=== PATIENT | male | born 1980 | race Caucasian/White ===

== ENCOUNTER 2022-07-23 14:05 | Emergency (ER) | payer OTHER ==
--- OUTSIDE RECORDS SUMMARY | 2022-07-23 14:08 | XMS REPORT | Continuity of Care Document ---
:1980 Author Organization [facility] t Address [address] [place] [address] [address] [place] [address] Care Team Providers Name Role Phone Romario Liu Primary Care Physician Noe_Ivanna Attending Clinician Unavailable VAHID GALLARDO Attending Clinician Unavailable Vahid Camarillo Attending Clinician Doctor Unassigned, [place] Attending Clinician Unavailable DARCY CARMONA Attending Clinician Unavailable Darcy Carmona MD Attending Clinician Noe_Ivanna Admitting Clinician Unavailable Payers Payer Name Policy Type Policy Number Effective Date Expiration Date Roberto bell BRIANNA - JOSE LUIS [id number] 2004 (POS II) 00:00:00 [place] [id number] 2017 2022 00:00:00 [place]PPO[place] 00:00:00 [place] [id number] 2020 OUT OF STATE 00:00:00 Problems Condition Condition Condition Status Onset Resolution Last Treating Co mments Source Name Details Category Date Date Treatment Clinician Date Excessive Excessive Problem Active Inessa elkin sweating Sweating 1-27 Family 00:00: Practic 00 e Type 1 Type 1 Problem Active Village diabetes Diabetes 6-24 Family mellitus Mellitus 00:00: Practi c 00 e Eosinophil Eosinophil Problem Active [facility] count Count 6-24 Family raised Raised 00:00: Practic 00 e Bursitis Bursitis Problem Active [facility] of of 8-21 Family shoulder Shoulder 00:00: Practi c 00 e Insulin Insulin Problem Active [facility] pump Pump 7-23 Family present Present 00:00: Practic 00 e Long-term Long-term Problem Active Inessa granger current Current 7-23 Family use of Use of 00:00: Practic insulin Insulin 00 e Body mass Body Mass Problem Active Inessa corbine index 30+ Index 30+ 4-30 Fami ly - obesity - Obesity 00:00: Prac tic 00 e Primary Primary Problem Active [facility] focal Focal 8-14 Family hyperhidro Hyperhidro 00:00: Pr actic sis sis 00 e Hypoglycem Hypoglycem Problem Active [facility] ia ia 5-06 Family 00:00: Practic 00 e Disorder Disorder Problem Active 2016-05 [facility] of of 0-20 Family bilirubin Bilirubin 00:00: Prac tic metabolism Metabolism 00 e Obesity Obesity Problem Active 2016-05 [facility] 0-20 Family 00:00: Practic 00 e Primary Primary Problem Active 2016-05 [facility] erectile Erectile 0-20 Family dysfunctio Dysfunctio 00:00: Pr actic n n 00 e Type 1 Type 1 Problem Active 2016-05 [facility] diabetes Diabetes 0-20 Family mellitus Mellitus 00:00: Practi c without without 00 e complicati Complicati 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 [facility]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 0-20 Family syndrome Syndrome 00:00: Practi c 00 e Impotence Impotence Problem Active 2016-05 Inessa corbine 0-20 Family 00:00: Practic 00 e Pneumonia Pneumonia Problem Active 2016-05 Inessa elkin 0-20 Family 00:00: Practic 00 e Elevated Elevated Problem Active 2016-05 [facility] level of Level of 0-20 Family transamina Transamina 00:00: Pr actic se and se and 00 e lactic Lactic acid Acid dehydrogen Dehydrogen ase ase Clinical Clinical Problem Active 2016-05 [facility] finding Finding 0-20 Family 00:00: Practic 00 e No known No known Disease Unive rs active active ity of problems problems [facility] Branch Allergies, Adverse Reactions, Alerts Allergy Allergy Status Severity Reaction(s) Onset Inactive Treating Comm ents Source Name Type Date Date Clinician Penicill Propensi Active Unknown - Uni vers ins ty to See comments 12-18 ity of adverse 00:00: [place] reaction 00 Medical s Branch PENICILL Drug Active Unknown-Cmnt Un sridevi INS Class 12-18 ity of 00:00: [place] 00 Medical Branch Penicill Propensi Active Unknown - Uni vers ins ty to See comments 12-18 ity of adverse 00:00: [place] reaction 00 Medical s Branch PENICILL Allergy Active [facility] INS to Family substanc Practic e e NO KNOWN Drug Active Univers ALLERGIE Class ity of S [place] [facility] Social History Social Habit Start Date Stop Date Quantity Comments Source History [facility] University o f Alcohol Std [place] [facility] Dr[facility] History [facility] o f Alcohol Binge [place] [facility] Exposure to 2022-02-28 2022-03-10 Not sure [facility] SARS-CoV-2 00:00:00 07:55:00 [facility] (event) Branch Tobacco use and 2022-03-10 2022-03-10 Smokeless tobacco Un iversity of exposure 00:00:00 00:00:00 non-user [place] [facility] [place] Alcohol intake 2022-03-10 2022-03-10 [facility] of 00:00:00 00:00:00 non-drinker [place] [facility] (finding) Branch History SDOH 2020-12-18 2020-12-18 1 University o f Alcohol Frequency 00:00:00 [facility] [place] Sex Assigned At [birth year] Universit y of 00:00:00 00:00:00 [facility] Smoking Status Start Date Stop Date Source Never smoked tobacco [facility] Medications Ordered Filled Start Stop Current Ordering Indication Dosage Frequency Signature Comments Components Source Medication Medication Date Date Medication? Clinician (SIG) Name Name triamcinolo 2021-05- No [id number] 40mg Univers ne 03-10 9104 ity of acetonide 14:45: 13:55 [place] (KENALOG) 00 :00 Medical injection Branch 40 mg triamcinolo 2021-05- No [id number] 40mg 40 mg, Univers ne 003-10 [id number] Intramuscu ity of acetonide 14:45: 13:55 [place], [place]CE, [place] (KE[place] 00 :00 1 dose, On Medi freda injection Danelle Branch 40 mg 03/10/22 at 0945, Routine triamcinolo 2021-05- No [id number] 40mg Univers ne 03-1004 ity of acetonide 14:45: 13:55 [place] (KENALOG) 00 :00 Medical injection Branch 40 mg triamcinolo 2021-05- No [id number] 40mg 40 mg, Univers ne 03-1004 Intramuscu ity of acetonide 14:45: 13:55 [place], ONCE, [place] (KENALOG) 00 :00 1 dose, On Medi freda injection [facility]elle Branch 40 mg 03/10/22 at 0945, Routine HUMALOG Yes Univers U-100 6-24 ity of INSULIN 100 00:00: [place] unit/mL 00 Medical solution Branch HUMALOG Yes Univers U-100 6-24 ity of INSULIN 100 00:00: [place] unit/mL 00 Medical solution Branch HUMALOG Yes Univers U-100 6-24 ity of INSULIN 100 00:00: [place] unit/mL 00 Medical solution Branch HUMALOG Yes Univers U-100 6-24 ity of INSULIN 100 00:00: [place] unit/mL 00 Medical solution Branch HUMALOG Yes Univers U-100 6-24 ity of INSULIN 100 00:00: [place] unit/mL 00 Medical solution Branch HUMALOG Yes Univers U-100 6-24 ity of INSULIN 100 00:00: [place] unit/mL 00 Medical solution Branch HUMALOG Yes Univers U-100 6-24 ity of INSULIN 100 00:00: [place] unit/mL 00 Medical solution Branch HUMALOG Yes Univers U-100 6-24 ity of INSULIN 100 00:00: [place] unit/mL 00 Medical solution Branch BD Insulin BD Insulin No BD Insulin [place] Syringe Syringe Syringe Family Ultra-Fine Ultra-Fine Ultra-Fine Practic 0.5 mL 31 0.5 mL 31 0.5 mL 31 e gauge x gauge x gauge x 09/27" 16" 09/27" Comfort EZ Comfort EZ No 3needle Q1D Comfort EZ [place] Pen [place] Pen [place] (s) Pen F amily 32 gauge x 32 gauge x [place] 32 Practic " Take " Take gauge x e 3 needles 3 needles " Take every day every day 3 needles by miscell. by miscell. every day route as route as by directed. directed. miscell. route as directed. Dexcom G6 Dexcom G6 No Dexcom G6 [facility] Transmitter Transmitter Transmitte Family r Practic e Gvoke PFS Gvoke PFS No Gvoke PFS [facility] 1-Pack 1 1-Pack 1 1-Pack 1 Fam ez mg/0.2 mL mg/0.2 mL mg/0.2 mL Practic subcutaneou subcutaneou subcutaneo e s syringe s syringe us syringe Inject by Inject by Inject by subcutaneou subcutaneou subcutaneo s route. s route. us route. Humalog Humalog No Humalog Villag e U-100 U-100 U-100 Family Insulin 100 Insulin 100 Insulin Practic unit/mL unit/mL 100 e subcutaneou subcutaneou unit/mL s solution s solution subcutaneo USE IN PUMP USE IN PUMP us solution DIRECTED, DIRECTED, USE IN 12 MIDNIGHT 12 MIDNIGHT PUMP 2.35, 6 2.35, 6 DIRECTED, A.M. 2.80, A.M. 2.80, 12 9 P.M. 9 P.M. MIDNIGHT 2.35. ICR 2.35. ICR 2.35, 6 OF 1:5, S. OF 1:5, S. A.M. 2.80, OF 35 OF 35 9 P.M. TARGET 120 TARGET 120 2.35. ICR FOR TOTAL FOR TOTAL OF 1:5, S. DAILY DOSE DAILY DOSE OF 35 OF 150 OF 150 TARGET 120 FOR TOTAL DAILY DOSE OF 150 Insulin Insulin No Insulin Villag e Infusion Infusion Infusion Fam ez Pump Pump Pump Practic e Lantus Lantus No Lantus [place] Solostar Solostar Solostar Fam ez U-100 U-100 U-100 Practic Insulin 100 Insulin 100 Insulin e unit/mL (3 unit/mL (3 100 mL) mL) unit/mL (3 subcutaneou subcutaneou mL) s pen Give s pen Give subcutaneo in case of in case of us pen pump pump Give in failure: failure: case of TDD 80 TDD 80 pump failure: TDD 80 Omnipod 5 Omnipod 5 No 1cartri Omnipod 5 [facility] G6 Intro G6 Intro dge(s) G6 Intro F amily Kit (Gen 5) Kit (Gen 5) Kit (Gen Practic subcutaneou subcutaneou 5) e s cartridge s cartridge subcutaneo with with us controller controller cartridge Inject 1 Inject 1 with cartridge cartridge controller by by Inject 1 subcutaneou subcutaneou cartridge s route. s route. by subcutaneo us route. OneTouch OneTouch No 3strip( Q1D OneTouch [facility] Ultra Test Ultra Test s) Ultra Test Family strips Take strips Take strips Practic 3 strips 3 strips Take 3 e every day every day strips by miscell. by miscell. every day route as route as by directed. directed. miscell. route as directed. BD Insulin BD Insulin No BD Insulin [facility] Syringe Syringe Syringe [facility] Ultra-Fine Ultra-Fine Ultra-Fine Practic 0.5 mL 31 0.5 mL 31 0.5 mL 31 e gauge x gauge x gauge x 5/16" 5/16" 5/16" Comfort EZ Comfort EZ No 3needle Q1D Comfort EZ [facility] Pen [place] Pen [place] (s) Pen F amily 32 gauge x 32 gauge x [place] 32 Practic 532" Take " Take gauge x e 3 needles 3 needles 5/32" Take every day every day 3 needles by miscell. by miscell. every day route as route as by directed. directed. miscell. route as directed. Dexcom G6 Dexcom G6 No Dexcom G6 [facility] Transmitter Transmitter Transmitte Family r Practic e Gvoke PFS Gvoke PFS No Gvoke PFS [facility] 1-Pack 1 1-Pack 1 1-Pack 1 Fam ez mg/0.2 mL mg/0.2 mL mg/0.2 mL Practic subcutaneou subcutaneou subcutaneo e s syringe s syringe us syringe Inject by Inject by Inject by subcutaneou subcutaneou subcutaneo s route. s route. us route. Humalog Humalog No Humalog Villag e U-100 U-100 U-100 Family Insulin 100 Insulin 100 Insulin Practic unit/mL unit/mL 100 e subcutaneou subcutaneou unit/mL s solution s solution subcutaneo USE IN PUMP USE IN PUMP us solution DIRECTED, DIRECTED, USE IN 12 MIDNIGHT 12 MIDNIGHT PUMP 2.35, 6 2.35, 6 DIRECTED, A.M. 2.80, A.M. 2.80, 12 9 P.M. 9 P.M. MIDNIGHT 2.35. ICR 2.35. ICR 2.35, 6 OF 1:5, S. OF 1:5, S. A.M. 2.80, OF 35 OF 35 9 P.M. TARGET 120 TARGET 120 2.35. ICR FOR TOTAL FOR TOTAL OF 1:5, S. DAILY DOSE DAILY DOSE OF 35 OF 150 OF 150 TARGET 120 FOR TOTAL DAILY DOSE OF 150 Insulin Insulin No Insulin Villag e Infusion Infusion Infusion Fam ez Pump Pump Pump Practic e Lantus Lantus No Lantus [facility] Solostar Solostar Solostnc Fam ez U-100 U-100 U-100 Practic Insulin 100 Insulin 100 Insulin e unit/mL (3 unit/mL (3 100 mL) mL) unit/mL (3 subcutaneou subcutaneou mL) s pen Give s pen Give subcutaneo in case of in case of us pen pump pump Give in failure: failure: case of TDD 80 TDD 80 pump failure: TDD 80 Omnipod 5 Omnipod 5 No 1cartri Omnipod 5 [facility] G6 Intro G6 Intro dge(s) G6 Intro F amily Kit (Gen 5) Kit (Gen 5) Kit (Gen Practic subcutaneou subcutaneou 5) e s cartridge s cartridge subcutaneo with with us controller controller cartridge Inject 1 Inject 1 with cartridge cartridge controller by by Inject 1 subcutaneou subcutaneou cartridge s route. s route. by subcutaneo us route. Omnipod 5 Omnipod 5 No 1cartri Omnipod 5 [facility] G6 Pods G6 Pods dge(s) G6 Pods Fami ly (Gen 5) (Gen 5) (Gen 5) Practi c subcutaneou subcutaneou subcutaneo e s cartridge s cartridge us Inject 1 Inject 1 cartridge cartridge cartridge Inject 1 by by cartridge subcutaneou subcutaneou by s route. s route. subcutaneo us route. Omnipod Omnipod No Omnipod Villag e Dash Pods Dash Pods Dash Pods Family (Gen 4) (Gen 4) (Gen 4) Practi c subcutaneou subcutaneou subcutaneo e s cartridge s cartridge us USe dailyu USe dailyu cartridge to deliver to deliver USe dailyu insulin insulin to deliver insulin OneTouch OneTouch No 3strip( Q1D [facility] Ultra Test Ultra Test s) Ultra Test Family strips Take strips Take strips Practic 3 strips 3 strips Take 3 e every day every day strips by miscell. by miscell. every day route as route as by directed. directed. miscell. route as directed. BD Insulin BD Insulin No BD Insulin [facility] Syringe Syringe Syringe [facility] Ultra-Fine Ultra-Fine Ultra-Fine Practic 0.5 mL 31 0.5 mL 31 0.5 mL 31 e gauge x gauge x gauge x 5/16" 5/16" 5/16" Comfort EZ Comfort EZ No 3needle Q1D Comfort EZ [place] Pen [place] Pen [place] (s) Pen F amily 32 gauge x 32 gauge x [place] 32 Practic " Take " Take gauge x e 3 needles 3 needles 32" Take every day every day 3 needles by miscell. by miscell. every day route as route as by directed. directed. miscell. route as directed. Dexcom G6 Dexcom G6 No [address] Sensor Sensor Sensor Family device device device Practic change change change e every 10 every 10 every 10 days days days Dexcom G6 Dexcom G6 No [address] Transmitter Transmitter Transmitte Family r Practic e Dexcom Dexcom No [address] Transmitter Transmitter Transmitte Family device Take device Take r device Practic 1 device 1 device Take 1 e every 3 every 3 device months by months by every 3 miscell. miscell. months by route. route. miscell. route. Gvoke Gvoke No Gvoke [facility] HypoPen HypoPen HypoPen Family 2-Pack 1 2-Pack 1 2-Pack 1 Pra ctic mg/0.2 mL mg/0.2 mL mg/0.2 mL e subcutaneou subcutaneou subcutaneo s s us auto-inject auto-inject auto-injec or Use once or Use once tor Use for for once for hypoglycemi hypoglycemi hypoglycem a aas a aas ia aas needed needed needed Gvoke PFS Gvoke PFS No Gvoke PFS [facility] 1-Pack 1 1-Pack 1 1-Pack 1 Fam ez mg/0.2 mL mg/0.2 mL mg/0.2 mL Practic subcutaneou subcutaneou subcutaneo e s syringe s syringe us syringe Inject by Inject by Inject by subcutaneou subcutaneou subcutaneo s route. s route. us route. Humalog Humalog No Humalog [facility] U-100 U-100 U-100 Family Insulin 100 Insulin 100 Insulin Practic unit/mL unit/mL 100 e subcutaneou subcutaneou unit/mL s solution s solution subcutaneo USE IN PUMP USE IN PUMP us solution DIRECTED, DIRECTED, USE IN 12 MIDNIGHT 12 MIDNIGHT PUMP 2.35, 6 2.35, 6 DIRECTED, A.M. 2.80, A.M. 2.80, 12 9 P.M. 9 P.M. MIDNIGHT 2.35. ICR 2.35. ICR 2.35, 6 OF 1:5, S. OF 1:5, S. A.M. 2.80, OF 35 OF 35 9 P.M. TARGET 120 TARGET 120 2.35. ICR FOR TOTAL FOR TOTAL OF 1:5, S. DAILY DOSE DAILY DOSE OF 35 OF 150 OF 150 TARGET 120 FOR TOTAL DAILY DOSE OF 150 Insulin Insulin No Insulin Villag e Infusion Infusion Infusion Fam ez Pump Pump Pump Practic e Lantus Lantus No Lantus [facility] ez U-100 U-100 U-100 Practic Insulin 100 Insulin 100 Insulin e unit/mL (3 unit/mL (3 100 mL) mL) unit/mL (3 subcutaneou subcutaneou mL) s pen Give s pen Give subcutaneo in case of in case of us pen pump pump Give in failure: failure: case of TDD 80 TDD 80 pump failure: TDD 80 Novolog Novolog No Novolog Vill[facility] e U-100 U-100 U-100 Family Insulin Insulin Insulin Practi c aspart 100 aspart 100 aspart 100 e unit/mL unit/mL unit/mL subcutaneou subcutaneou subcutaneo s solution s solution us Inject 150 Inject 150 solution units every units every Inject 150 day by day by units subcutaneou subcutaneou every day s route. s route. by subcutaneo us route. Omnipod 5 Omnipod 5 No 1cartri Omnipod 5 [facility] G6 Intro G6 Intro dge(s) G6 Intro F amily Kit (Gen 5) Kit (Gen 5) Kit (Gen Practic subcutaneou subcutaneou 5) e s cartridge s cartridge subcutaneo with with us controller controller cartridge Inject 1 Inject 1 with cartridge cartridge controller by by Inject 1 subcutaneou subcutaneou cartridge s route. s route. by subcutaneo us route. Omnipod 5 Omnipod 5 No 1cartri Omnipod 5 [facility] G6 Pods G6 Pods dge(s) G6 Pods Fami ly (Gen 5) (Gen 5) (Gen 5) Practi c subcutaneou subcutaneou subcutaneo e s cartridge s cartridge us Inject 1 Inject 1 cartridge cartridge cartridge Inject 1 by by cartridge subcutaneou subcutaneou by s route. s route. subcutaneo us route. Omnipod Omnipod No Omnipod Villag e Dash Pods Dash Pods Dash Pods Family (Gen 4) (Gen 4) (Gen 4) Practi c subcutaneou subcutaneou subcutaneo e s cartridge s cartridge us USe dailyu USe dailyu cartridge to deliver to deliver USe dailyu insulin insulin to deliver insulin OneTouch OneTouch No 3strip( Q1D Oneuch [facility] Ultra Test Ultra Test s) Ultra Test Family strips Take strips Take strips Practic 3 strips 3 strips Take 3 e every day every day strips by miscell. by miscell. every day route as route as by directed. directed. miscell. route as directed. Immunizations Ordered Immunization Filled Immunization Date Status Commen ts Source Name Name tetanus toxoid, tetanus toxoid, 2017-05-15 Completed Vill age Family adsorbed adsorbed 00:00:00 Practice tetanus toxoid, tetanus toxoid, 2017-05-[address] [facility] age Family adsorbed adsorbed 00:00:00 Practice tetanus toxoid, tetanus toxoid, 2017-05-15 Completed Vill age Family adsorbed adsorbed 00:00:00 Practice Vital Signs Vital Name Observation Time Observation Value Comments Source BP Diastolic 2022-06-10 00:00:00 90 mm[Hg] [facility] Height 2022-06-10 00:00:00 76 [in_i] [facility] BMI (Body Mass 2022-06-10 00:00:00 34.8 kg/m2 [facility] Family Index) Practice BP Systolic 2022-06-10 00:00:00 130 mm[Hg] [facility] Body Weight 2022-06-10 00:00:00 286 [lb_av] [facility] Systolic blood 2022-03-10 13:10:00 152 mm[Hg] Lornaer sity [facility] pressure Medical Branch Diastolic blood 2022-03-10 13:10:00 101 mm[Hg] [facility] [place] pressure [facility] Heart rate 2022-03-10 13:10:00 58 /min Universi ty [facility] Body height 2022-03-10 13:09:00 193 cm Universi [facility] Body weight 2022-03-10 13:09:00 131.543 kg Universi [facility] BMI 2022-03-10 13:09:00 35.30 kg/m2 [facility] BP Diastolic 2022-02-04 00:00:00 95 mm[Hg] [facility] Height 2022-02-04 00:00:00 76 [in_i] [facility] BMI (Body Mass 2022-02-04 00:00:00 34.9 kg/m2 [facility] Family Index) Practice BP Systolic 2022-02-04 00:00:00 141 mm[Hg] [facility] Body Weight 2022-02-04 00:00:00 287 [lb_av] [facility] BP Diastolic 2021-11-05 00:00:00 90 mm[Hg] [facility] Height 2021-11-05 00:00:00 76 [in_i] [facility] BMI (Body Mass 2021-11-05 00:00:00 34.2 kg/m2 [facility] Family Index) Practice BP Systolic 2021-11-05 00:00:00 136 mm[Hg] [facility] Body Weight 2021-11-05 00:00:00 280.6 [lb_av] [facility] BP Diastolic 2021-06-11 00:00:00 87 mm[Hg] [facility] Height 2021-06-11 00:00:00 76 [in_i] [facility] BMI (Body Mass 2021-06-11 00:00:00 34.4 kg/m2 [facility] Family Index) Practice BP Systolic 2021-06-11 00:00:00 126 mm[Hg] [facility] Body Weight 2021-06-11 00:00:00 283 [lb_av] [facility] Systolic blood 2020-12-18 14:44:00 131 mm[Hg] Univer sity [facility] pressure Medical Branch Diastolic blood 2020-12-18 14:44:00 87 mm[Hg] [facility] Heart rate 2020-12-18 14:44:00 72 [facility] 2020-12-18 14:44:00 193 cm [facility] Body weight 2020-12-18 14:44:00 129.275 kg [facility] BMI 2020-12-18 14:44:00 34.69 kg/m2 [facility] BP Diastolic 2020-12-04 00:00:00 82 mm[Hg] [facility] Height 2020-12-04 00:00:00 76 [in_i] [facility] Family Practice BMI (Body Mass 2020-12-04 00:00:00 34.8 kg/m2 [facility] Family Index) Practice BP Systolic 2020-12-04 00:00:00 133 mm[Hg] [facility] Body Weight 2020-12-04 00:00:00 286 [lb_av] [facility] Family Practice BP Diastolic 2020-09-11 00:00:00 87 mm[Hg] [facility] Height 2020-09-11 00:00:00 76 [in_i] [facility] Family Practice BMI (Body Mass 2020-09-11 00:00:00 35.2 kg/m2 [facility] Family Index) Practice BP Systolic 2020-09-11 00:00:00 137 mm[Hg] [facility] Body Weight 2020-09-11 00:00:00 289 [lb_av] [facility] BP Diastolic 2020-04-24 00:00:00 90 mm[Hg] [facility] Height 2020-04-24 00:00:00 76 [in_i] [facility] BMI (Body Mass 2020-04-24 00:00:00 34.8 kg/m2 Vill[facility] e Family Index) Practice BP Systolic 2020-04-24 00:00:00 128 mm[Hg] [facility] Body Weight 2020-04-24 00:00:00 286 [lb_av] [facility] Procedures Procedure Date / Time Performed Performing Clinician [facility] e CONSENT/REFUSAL FOR 2022-03-10 12:57:24 Doctor Unassigned, No Un [facility] DIAGNOSIS AND Name Medical Branch TREATMENT ASSIGNMENT OF BENEFITS 2022-03-10 12:57:11 Doctor Unassigned, No [facility] Branch ASSIGNMENT OF BENEFITS 2020-12-30 21:10:45 Doctor Unassigned, No [facility] Plan of Care Planned Activity Planned Date Details Comments Source Diagnostic Test 2022-06-10 glucose, fingerstick, Inessa Carlton Pending 00:00:00 blood [code = Practice glucose, fingerstick, blood] Diagnostic Test 2022-06-10 hemoglobin A1C, Huy reyez Pending 00:00:00 fingerstick [code = Practice hemoglobin A1C, fingerstick] Future Appointment 2022-11-07 Romario Liu, Miriam [facility] 00:00:[address]; Practice [address] [address] Future Appointment 2022-09-16 Romario Liu, Miriam [facility] 11:15:[address]; Practice [address], [place] [address] Encounters Start End Encounter Admission Attending Care Care Encounter Source Date/Time Date/Time Type Type Clinicians Facility Department ID 2022-06-10 2022-06-10 Outpatient Noe_Ivanna VFP VFP [id number] [id number] Village 00:00:00 00:00:00 [id number] Family Practic e 2022-06-10 2022-06-10 Romario VFP [place] - [id number] V illage 00:00:00 00:00:00 [facility] Ayan Liu - Pracanisa velasquez MD: [id number] [place] - e Shadow [facility], [place] [address] , Ph. 2022-06-09 2022-06-09 Outpatient Noe_Ivanna VFP VFP [id number] 7-20 Village 00:00:00 00:00:00 [id number] Family Practic e 2022-03-10 2022-03-10 Outpatient Kamryn GALLARDO [facility] [id number] Univers 08:30:00 09:57:40 VAHID [place] [facility] 2022-03-10 2022-03-10 Office Lidia [facility] [id number] [facility] 08:30:00 09:57:40 Visit [facility] [id number] it y of MARY D [id number] Sanjay as EJNN?BLEA [phone] Ct chikis CLEMENTINA [address] [place] [address] MEDICAL OFFICE [facility] 2022-03-10 2022-03-10 Orders Doctor FRANKIE [id number] Univers 00:00:00 00:00:00 Only Unassigned, JONATHAN [id number] ity of [place] [facility] [id number] Sanjay as [phone] [address] 2022-02-04 2022-02-04 Outpatient Daniel_T VFP VFP [id number] [address] [place] [address] 00:00:00 00:00:00 [id number] Family Practic e 2022-02-04 2022-02-04 Romario VFP [place] - [id number] V illage 00:00:00 00:00:00 [facility] Ayan Diana - Pracanisa velasquez MD: [id number] [place] - e Shadow VM_HOU[facility], [address], [place] [address] , Ph. 2022-02-03 2022-02-03 Outpatient Daniel_T VFP VFP [id number] [address] [place] [address] 00:00:00 00:00:00 [id number] Family Practic e 2021-11-22 2021-11-22 Outpatient Daniel_T VFP VFP [id number] [address] [place] [address] 07:17:00 07:17:00 [id number] Family Practic e 2021-11-09 2021-11-09 Outpatient Daniel_T VFP VFP [id number] [address] [place] [address] 01:01:00 01:01:00 [id number] Family Practic e 2021-11-05 2021-11-05 Outpatient Daniel_T VFP VFP [id number] [address] [place] [address] 05:53:00 05:53:00 [id number] Family Practic e 2021-11-05 2021-11-05 Romario VFP [place] - [id number] V illage 00:00:00 00:00:00 Hawa [facility] Family LiuAyan - Pracanisa velasquez MD: [id number] VM_MAGUI[address]Walt [address], [address], [place] [address] , Ph. 2021-11-04 2021-11-04 Outpatient Daniel_T VFP VFP [id number] [facility] 05:14:00 05:14:00 [id number] Family Practic e 2021-06-14 2021-06-14 Outpatient Daniel_T VFP VFP [id number] [facility] 06:43:00 06:43:00 [id number] Family Practic e 2021-06-11 2021-06-11 Outpatient Daniel_T VFP VFP [id number] [address] [place] [address] 02:41:00 02:41:00 [id number] Family Practic e 2021-06-11 2021-06-11 Romario VFP [place] - [id number] V illage 00:00:00 [facility] Family LiuAyan - Lillian velasquez MD: [id number] [place] [address], [address], [place] [address] , Ph. 2021-06-10 2021-06-10 Outpatient Daniel_T VFP VFP [id number] [facility] 08:15:00 08:15:00 [id number] Family Practic e 2020-12-30 2020-12-30 Outpatient R KRISTINE [facility] [id number] Univers 16:00:00 16:00:00 DARCY [facility] 2020-12-30 2020-12-30 Orders Doctor FRANKIE [id number] Univers 00:00:00 00:00:00 Only Unassigned, JONATHAN [id number] ity of [place] [facility] [id number] Sanjay as [id number] [address] 2020-12-23 2020-12-23 Telephone Kristine [facility] [id number] Univers 00:00:00 00:00:00 Darcy [facility] [id number]..[id number] it y of Surgical [id number] Sanjay as Specialti [id number] Ct dical es 198 [facility] 2020-12-22 2020-12-22 Outpatient Daniel_T VFP VFP [id number] [address] [place] [address] 04:22:00 04:22:00 [id number] Family Uyen e 2020-12-18 2020-12-18 Hospital [facility] [id number] Univers 11:48:04 23:59:00 [place]counter [place] [id number] ity of Surgical [id number] Sanjay as Specialti [id number] Ct dical es 809 [facility] 2020-12-18 2020-12-18 Office [facility] [id number] Univers 09:50:42 09:51:20 Visit [place] [id number] it y of Surgical [id number] Sanjay as Specialti [id number] Ct dical es 198 [facility] 2020-12-18 2020-12-18 Outpatient R [facility] [id number] [facility] 08:15:00 08:15:00 [facility] 2020-12-08 2020-12-08 Outpatient Shineel_T VFP VFP [id number] [address] [place] [address] 08:25:00 08:25:00 [id number] Family Uyen e 2020-12-04 2020-12-04 Outpatient Daniel_T VFP VFP [id number] [address] [place] [address] 05:24:00 05:24:00 [id number] Family Qiu e 2020-12-04 2020-12-04 Romario VFP [place] - [id number] V illage 00:00:00 00:00:00 [facility] Family Liu, Medical - Practi eva ALEJANDRO: [id number] [place] [facility], [address], [place] [address] , Ph. 2020-09-29 2020-09-29 Outpatient Daniel_T VFP VFP [id number] [address] [place] [address] 02:47:00 02:47:00 [id number] Family Practic e 2020-09-16 2020-09-16 Outpatient Daniel_T VFP VFP [id number] [address] [place] [address] 01:40:00 01:40:00 [id number] Family Practic e 2020-09-11 2020-09-11 Outpatient Daniel_T VFP VFP [id number] [address] [place] [address] 02:44:00 02:44:00 [id number] Family Practic e 2020-09-11 2020-09-11 Romario VFP [place] - [id number] V illage 00:00:00 00:00:00 [facility] Family Liu Medical - Practi c MD: [id number] [place] [facility] [address], [place] [address] , Ph. 2020-04-30 2020-04-30 Outpatient Daniel_T VFP VFP [id number] [address] [place] [address] 01:28:00 01:28:00 [id number] Family Practic e 2020-04-24 2020-04-24 Outpatient Daniel_T VFP VFP [id number] [address] [place] [address] 11:45:00 11:45:00 [id number] Family Practic e 2020-04-24 2020-04-24 Romario VFP [place] - [id number] V illage 00:00:00 00:00:00 Hawa [facility] Family Liu Medical - Practi c MD: [id number] VMMargo hutchinson [facility] [address], [place] [address] , Ph. 2020-04-23 2020-04-23 Outpatient Daniel_T VFP VFP [id number] [address] [place] [address] 05:57:00 05:57:00 Family Practic e 2020-04-20 2020-04-20 Outpatient Daniel_T VFP VFP [id number] [address] [place] [address] 04:50:00 04:50:00 Family Practic e 2020-03-27 2020-03-27 Outpatient Daniel_T VFP VFP [id number] [address] [place] [address] 02:31:00 02:31:00 [id number] Family Practic e Results Test Description Test Time Test Comments Results Result Comments Source Hemoglobin A1c measurement device panel 2022-06-10 10:54:03 Test Item Value Reference Range Interpretation Comme nts Hemoglobin A1c/Hemoglobin.total in Blood (test code = 4548-4) 7.3 % 5.7-6.4 [facility] [id number] 10:53:03 Test Item Value Reference Range Interpretation Comments Blood Glucose: mg/dl (test code = Blood 104 Glucose: mg/dl) [facility] [id number] 15:16:19 Test Item Value Reference Range Interpretation Comments Hemoglobin A1c/Hemoglobin.total in 7.6 % 5.7-6.4 Blood (test code = 4548-4) [facility] in Capillary [id number] 15:12:40 Test Item Value Reference Range Interpretation Comments Blood Glucose: mg/dl (test code = Blood 142 Glucose: mg/dl) [facility] [id number] 11:28:56 Test Item Value Reference Range Interpretation Comments Hemoglobin A1C Fingerstick: (test code 7.8 = Hemoglobin A1C Fingerstick:) [facility] in Capillary [id number] 11:27:27 Test Item Value Reference Range Interpretation Comments Blood Glucose: mg/dl (test code = Blood 201 Glucose: mg/dl) [facility]
--- NOTE | 2022-07-23 15:18 | RAD REPORT ---
EXAM DESCRIPTION: RAD - Chest Single View - 07/23/2022 3:07 pm CLINICAL HISTORY: CHEST PAIN COMPARISON: CHEST SINGLE VIEW dated 01/23/2015 FINDINGS: Lines: None. Lungs: No evidence of edema or pneumonia. Pleural: No significant pleural effusions or pneumothorax. Cardiac: The heart size is within normal limits. Mediastinum: Within normal limits. Bones: No acute fractures. Other: None IMPRESSION: No acute cardiopulmonary disease.
[2022-07-23 15:24] LABS: Hematocrit 45.3 % (39.6-49.0); Lymphocytes % 12.1 % (15.3-44.8); MCV 81.8 fL (80-100); MPV 8.1 fL (7.6-11.3); RBC Red Blood Cell Count 5.54 M/uL (4.33-5.43)
[2022-07-23 15:42] LABS: Potassium 3.6 mmol/L (3.5-5.1); Troponin High Sensitivity 12.2 pg/mL (<58.9)
--- NOTE | 2022-07-23 16:15 | RAD REPORT ---
EXAM DESCRIPTION: CT - Chest For Pe Angio - 07/23/2022 4:04 pm CLINICAL HISTORY: chest pain, sob COMPARISON: None TECHNIQUE: Dynamically enhanced axial 3 mm thick images of the chest were obtained during administra tion of <100> mL Isovue 370 IV contrast. Coronal and oblique reconstruction images were generated and reviewed. Exam utilizes a protocol for optimal evaluation of pulmonary arterial tree. Maximum intensity projections 3D imaging was utilized All CT scans are performed using dose optimization technique as appropriate and may include automated exposure control or mA/KV adjustment according to patient size. FINDINGS: Chest Wall: No suspicious thyroid nodules or pathologic lymphadenopathy. Lungs: No acute abnormality. Pleura: No significant effusions or pneumothorax. Mediastinum/chucky: No pathologic lymphadenopathy. The esophagus appears diffusely thickened. There is also some indistinctness on the fat. Pulmonary arteries/Aorta: No filling defect identified. No aortic aneurysm. Heart: No significant pericardial effusion. Normal heart size. Scattered coronary artery calcificatio ns. Upper abdomen: No acute abnormality. Bones: No acute abnormality. IMPRESSION: Negative for pulmonary embolism. Question esophagitis. Endoscopy could further evaluate.
[2022-07-23] MEDS ORDERED: NA CHLORIDE 0.9% 0 ML ONE (16:19)
[2022-07-23] MEDS ORDERED: NA CHLORIDE 0.9% 1,000 ML ONE (16:20)
[2022-07-23 18:05] VITALS: TEMP 97.2
[2022-07-23 18:06] VITALS: BP 118/78; O2SAT 98
--- NOTE | 2022-07-25 13:07 | EKG ---
Test Date: 2022-07-23 Test Time: 14:26:51 Second Class Welder: MB MEASUREMENT RESULTS: Intervals: Rate: 97 ND: 150 QRSD: 90 QT: 340 QTc: 431 [place]: P: 64 ND: 150 QRS: 62 T: 28 INTERPRETIVE STATEMENTS: Normal sinus rhythm Normal ECG Compared to ECG 04/30/2004 16:25:00 T-wave abnormality no longer present Electronically Signed On 07-25-22 13:04:48 CDT by Jose Enciso
--- NOTE | 2022-08-05 16:06 | ER ---
Nurse's Notes [facility] Name: Kahlil Kiser Age: 41 yrs Sex: Male : 1980 Arrival Date: 07/23/2022 Time: 14:08 Bed 19 Private MD: Diagnosis: Chest pain, unspecified Presentation: 07/23 14:17 Chief complaint: Patient states: "I'm having chest pain on my right side. It feels like mb9 my muscle. I started coughing 2 weeks ago and went to urgent care last week. They said it sounds like pneumonia and gave me steroids. But I still have pain in my chest when I breathe in deep". Coronavirus screen: Vaccine status: Patient reports being unvaccinated. Ebola Screen: No symptoms or risks identified at this time. Initial Sepsis Screen: Does the patient meet any 2 criteria? No. Patient's initial sepsis screen is negative. Does the patient have a suspected source of infection? No. Patient's initial sepsis screen is negative. Risk Assessment: Do you want to hurt yourself or someone else? Patient reports no desire to harm self or others. Onset of symptoms. 14:17 Method Of Arrival: Ambulatory mb9 14:17 Acuity: JAMES 3 mb9 Historical: - Allergies: 14:20 PENICILLINS; mb9 - Home Meds: 14:20 Humalog Sub-Q [Active]; mb9 - PMHx: 14:20 Diabetes mellitus; mb9 - PSHx: 14:20 None; mb9 - Immunization history:: Adult Immunizations up to date. - Social history:: Smoking status: Patient denies any tobacco usage or history of. Screenin:24 [facility] ED Fall Risk Assessment (Adult) History of falling in the last 3 months, kc6 including since admission No falls in past 3 months (0 pts) Confusion or Disorientation No (0 pts) Intoxicated or Sedated No (0 pts) Impaired Gait No (0 pts) Mobility Assist Device Used No (0 pt) Altered Elimination No (0 pt) Score/Fall Risk Level 0 - 2 = Low Risk Oriented to surroundings, Maintained a safe environment, Educated pt \\T\\ family on fall prevention, incl call for assistance when getting out of bed, Assessed \\T\\ reinforced patient's understanding of fall precautions, Hourly rounding (assess needs \\T\\ fall precautionary measures) done. Abuse screen: Denies threats or abuse. Denies injuries from another. Nutritional screening: No deficits noted. Tuberculosis screening: No symptoms or risk factors identified. Assessment: 16:19 Reassessment: Patient is alert, oriented x 3, equal unlabored respirations, skin aa5 warm/dry/pink. 16:22 General: Appears in no apparent distress. comfortable, Behavior is calm, cooperative, kc6 appropriate for age. Pain: Complains of pain in anterior aspect of right upper chest Pain does not radiate. Quality of pain is described as sharp, shooting, stabbing, Pain began 2 weeks ago Is intermittent, Alleviated by rest, Aggravated by coughing or taking a deep breath Also complains of no other associated symptoms. Neuro: Olguin Agitation-Sedation Scale (RASS): 0 - Alert and Calm Level of Consciousness is awake, alert, obeys commands, Oriented to person, place, time, situation, Appropriate for age. Cardiovascular: Heart tones S1 S2 present Capillary refill < 3 seconds Rhythm is sinus rhythm. Respiratory: Airway is patent Trachea midline Respiratory effort is even, unlabored, Respiratory pattern is regular, symmetrical, Breath sounds are clear bilaterally. GI: No signs and/or symptoms were reported involving the gastrointestinal system. : No signs and/or symptoms were reported regarding the genitourinary system. EENT: No signs and/or symptoms were reported regarding the EENT system. Derm: No signs and/or symptoms reported regarding the dermatologic system. Skin is intact, Skin is pink, warm \\T\\ dry. Musculoskeletal: No signs and/or symptoms reported regarding the musculoskeletal system. Circulation, motion, and sensation intact. Capillary refill < 3 seconds, Range of motion: intact in all extremities. 17:22 Reassessment: Patient appears in no apparent distress at this time. No changes from kc6 previously documented assessment. Patient and/or family updated on plan of care and expected duration. Pain level reassessed. Patient is alert, oriented x 3, equal unlabored respirations, skin warm/dry/pink. Vital Signs: 14:17 BP 109 / 64; Pulse 98; Resp 20; Temp 97.2; Pulse Ox 100% ; Weight 131.54 kg; Height 6 mb9 ft. 4 in. ; Pain 6/10; 16:24 BP 118 / 78; Pulse 71; Resp 13 S; Pulse Ox 98% on R/A; kc6 14:17 Body Mass Index 35.30 (131.54 kg, 193.04 cm) mb9 14:17 Pain Scale: Adult mb9 ED Course: 14:08 Patient arrived in ED. mr 14:12 Aurelio Lawrence PA is PHCP. jmm 14:12 Sami Dave MD is Attending Physician. jmm 14:17 Arm band placed on. mb9 14:17 EKG done, by ED staff, reviewed by Aurelio ROUSE. mb9 14:20 Triage completed. mb9 15:09 XRAY Chest (1 view) In Process Unspecified. EDMS 15:20 Basic Metabolic Panel Sent. mb9 15:20 CBC with Diff Sent. mb9 15:20 D-Dimer Sent. mb9 15:20 Troponin HS Sent. mb9 15:20 Inserted saline lock: 20 gauge in right antecubital area, using aseptic technique. mb9 Blood collected. 16:06 CT Chest For PE Angio In Process Unspecified. EDMS 16:14 India Lee, RN is Primary Nurse. kc6 16:18 Patient has correct armband on for positive identification. Bed in low position. Call aa5 light in reach. Side rails up X 1. Client placed on continuous cardiac and pulse oximetry monitoring. NIBP monitoring applied. 16:24 Patient maintains SpO2 saturation greater than 95% on room air. kc6 17:36 No provider procedures requiring assistance completed. IV discontinued, intact, kc6 bleeding controlled, No redness/swelling at site. Pressure dressing applied. Administered Medications: 16:19 Drug: NS 0.9% IV 1000 ml Route: IV; Rate: 1 bolus; Site: right antecubital; aa5 17:19 Follow up: Response: No adverse reaction; IV Status: Completed infusion; IV Intake: kc6 1000ml Medication: 14:21 VIS not applicable for this client. mb9 Intake: 17:19 IV: 1000ml; Total: 1000ml. kc6 Outcome: 17:16 Discharge ordered by . [facility] 17:37 Discharged to home ambulatory. kc6 17:37 Condition: stable 17:37 Discharge instructions given to patient, Instructed on discharge instructions, follow up and referral plans. medication usage, Demonstrated understanding of instructions, follow-up care, medications, Prescriptions given X 2. 17:37 Patient left the ED. kc6 Signatures: Dispatcher [employer] ELVIRAMS Aurelio Lawrence PA PA [facility] Cabrera, Katrin mr Rashid, Victorina, RN RN aa5 India Lee RN RN kc6 Judy, Katrin Garvey, RN RN mb9
--- NOTE | 2022-08-05 16:06 | EDPHYS ---
Physician Documentation [facility] Name: Kahlil Kiser Age: 41 yrs Sex: Male : 1980 Arrival Date: 07/23/2022 Time: 14:08 Bed 19 Private MD: ED Physician Sami Dave HPI: 07/23 14:22 This 41 yrs old Male presents to ER via Ambulatory with complaints of Chest Pain. [facility] 14:22 The patient or guardian reports chest pain that is located primarily in the substernal [facility] area. The pain does not radiate. Associated signs and symptoms: Pertinent positives: cough, shortness of breath. The chest pain is described as aching, sharp. Duration: The patient or guardian reports a single episode, that is still ongoing. Modifying factors: The symptoms are alleviated by nothing. the symptoms are aggravated by cough. This is a 41 year old male with a history of dm that presents to the ED with complaints of substernal chest pain beginning approx 1 week ago. Patient is currently take abx and steroids for an URI. States herman has increased. Historical: - Allergies: 14:20 PENICILLINS; mb9 - Home Meds: 14:20 Humalog Sub-Q [Active]; mb9 - PMHx: 14:20 Diabetes mellitus; mb9 - PSHx: 14:20 None; mb9 - Immunization history:: Adult Immunizations up to date. - Social history:: Smoking status: Patient denies any tobacco usage or history of. ROS: 14:22 Constitutional: Positive for fatigue. jmm 14:22 Cardiovascular: Positive for chest pain. 14:22 Respiratory: Positive for cough, shortness of breath. 14:22 All other systems are negative. Exam: 14:22 Constitutional: This is a well developed, well nourished patient who is awake, alert, jmm and in no acute distress. Head/Face: atraumatic. Eyes: EOMI, no conjunctival erythema appreciated ENT: Moist Mucus Membranes Neck: Trachea midline, Supple 14:22 Cardiovascular: Regular rate and rhythm. No edema appreciated Respiratory: Normal respirations, no respiratory distress appreciated Abdomen/GI: Non distended Back: Normal ROM Skin: General appearance color normal MS/ Extremity: Moves all extremities, no obvious deformities appreciated, no edema noted to the lower extremities Neuro: Awake and alert Psych: Behavior is normal, Mood is normal, Patient is cooperative and pleasant 14:22 Chest/axilla: Inspection: normal, Palpation: is normal. Vital Signs: 14:17 BP 109 / 64; Pulse 98; Resp 20; Temp 97.2; Pulse Ox 100% ; Weight 131.54 kg; Height 6 mb9 ft. 4 in. ; Pain 6/10; 16:24 BP 118 / 78; Pulse 71; Resp 13 S; Pulse Ox 98% on R/A; kc6 14:17 Body Mass Index 35.30 (131.54 kg, 193.04 cm) mb9 14:17 Pain Scale: Adult mb9 MDM: 14:25 Patient medically screened. [facility] 17:12 Differential diagnosis: acute myocardial infarction, acute pericarditis, [facility] costochondritis, esophagitis, pulmonary embolus, stable angina, thoracic aortic disection. Data reviewed: vital signs, nurses notes, lab test result(s), EKG. I considered the following discharge prescriptions or medication management in the emergency department Medications were administered in the Emergency Department. See MAR. Independent interpretation of the following test(s) in the Emergency Department X-Ray: My interpretation is No infiltrate. Counseling: I had a detailed discussion with the patient and/or guardian regarding: the historical points, exam findings, and any diagnostic results supporting the discharge/admit diagnosis, lab results, radiology results, the need for outpatient follow up, to return to the emergency department if symptoms worsen or persist or if there are any questions or concerns that arise at home. ED course: Patient is alert and non toxic in appearance in the ED. I do not currently suspect ACS, pneumonia. CT does shows signs of esophagitis. Will prescribed pepcid and carafate. Advised to follow up with pcp and otherwise given strict return precautions. patient understood and agrees with the plan of care. . 07/23 14:25 Order name: Basic Metabolic Panel; Complete Time: 16:05 [facility] 07/23 14:25 Order name: CBC with Diff; Complete Time: 15:31 [facility] 07/23 14:25 Order name: D-Dimer; Complete Time: 15:31 [facility] 07/23 14:25 Order name: Troponin HS; Complete Time: 16:05 [facility] 07/23 14:25 Order name: XRAY Chest (1 view); Complete Time: 15:20 [facility] 07/23 15:31 Order name: CT Chest For PE Angio; Complete Time: 16:22 [facility] 07/23 14:25 Order name: EKG; Complete Time: 14:26 [facility] 07/23 14:22 Order name: EKG - Nurse/Tech; Complete Time: 14:22 [facility] 07/23 14:25 Order name: Cardiac monitoring; Complete Time: 16:15 [facility] 07/23 14:25 Order name: IV Saline Lock; Complete Time: 15:20 [facility] 07/23 14:25 Order name: Labs collected and sent; Complete Time: 15:20 [facility] 07/23 14:25 Order name: O2 Per Protocol; Complete Time: 16:15 [facility] 07/23 14:25 Order name: O2 Sat Monitoring; Complete Time: 16:15 [facility] Administered Medications: 16:19 Drug: NS 0.9% IV 1000 ml Route: IV; Rate: 1 bolus; Site: right antecubital; aa5 17:19 Follow up: Response: No adverse reaction; IV Status: Completed infusion; IV Intake: kc6 1000ml Disposition: 18:30 Co-signature as Attending Physician, Sami Dave MD I reviewed the patient's care rt provided by the Advanced Practice Provider and agree with the diagnosis and treatment plan. Disposition Summary: 07/23/22 17:16 Discharge Ordered Location: Home [facility] Condition: Stable [facility] Diagnosis - Chest pain, unspecified [facility] Followup: [facility] - With: Private Physician - When: 2 - 3 days - Reason: Recheck today's complaints, Continuance of care, Re-evaluation by your physician Discharge Instructions: - Discharge Summary Sheet [facility] - Nonspecific Chest Pain, Adult [facility] Forms: - Medication Reconciliation Form [facility] - Thank You Letter [facility] - Antibiotic Education [facility] - Prescription Opioid Use [facility] Prescriptions: - Carafate 100 mg/mL Oral suspension - take 10 milliliter by ORAL route 4 times per day swish in mouth and swallow; [facility] use after food/drink; 200 milliliter; Refills: 0, Product Selection Permitted - Pepcid 20 mg Oral Tablet - take 1 tablet by ORAL route every 12 hours for 10 days; 20 tablet; Refills: 0, m Product Selection Permitted Signatures: Dispatcher [employer] Aurelio Porter PA PA jmm Calderon, Audri, RN RN aa5 Katrin Kim, RN RN mb9 Sami Dave MD MD rt India Lee RN kc6
== END 2022-07-23 17:37 | disposition home or self-care (01) ==
LOC: ER 14:05
DX: R07.89 Other chest pain (principal); R05.9 Cough, unspecified; R06.02 Shortness of breath; E11.9 Type 2 diabetes mellitus without complications; Z79.4 Long term (current) use of insulin; Z88.0 Allergy status to penicillin
CPT/HCPCS: 93005; 85025; 80048; 36415; 85379; 84484; 71275; 71045; 96360; 99285; Q9967; J7030